=== PATIENT | male | born 1965 | race African-American/Black ===

== ENCOUNTER → 2021-02-16 | Outpatient (CLI) | payer OTHER ==
--- NOTE | 2021-02-16 09:31 | RAD ---
EXAM: Lumbar spine, 2 views. HISTORY: Pain. COMPARISON: None. FINDINGS: 2 views of the lumbar spine are obtained. There is minimal lumbar dextrocurvature. There is no listhesis. There is multilevel endplate remodeling. There is mild multilevel disc space narrowing . There is facet arthropathy predominantly at the lumbosacral junction. There is a radiodense foreign body overlying the pelvis on the lateral projection. This is external to the pelvis on the frontal p rojection. IMPRESSION: 1. Multilevel degenerative change. 2. No acute osseous finding. Electronically signed by: Gina Ahuja MD (02/16/2021 9:29 AM) [id number]
== END ==
LOC: RAD 08:50
PROVIDERS: ATTEND Surgery
DX: Z02.71 Encounter for disability determination (principal); M47.816 Spondylosis without myelopathy or radiculopathy, lumbar region; M51.36 Other intervertebral disc degeneration, lumbar region
CPT/HCPCS: 72100